=== PATIENT | female | born 1980 | race Caucasian/White ===

== ENCOUNTER 2019-04-23 12:58 | Emergency (ER) | payer OTHER ==
[2019-04-23] MEDS ORDERED: magnesium (13:10)
--- NOTE | 2019-04-23 14:20 | ER Report ---
History and Physical Time Seen By MD: 13:30 Hx. of Stated Complaint: heavy menstral bleeding, 4 tampons used this morining HPI/ROS LMP March 29. STarted menses yesterday, and has been soaking a large tampon every hour for the past 4 hours. No pain other than mild cramping. S/p tubal ligation. Has had similar episodes in the past, but never sought medical attention. States that she has an episode of heavy menses about every 6 months. Allergies: Coded Allergies: acetaminophen (Verified Allergy, Intermediate, Hives, 04/23/19) propoxyphene (Verified Allergy, Intermediate, Hives, 04/23/19) soy (Verified Allergy, Unknown, 04/23/19) Uncoded Allergies: tide (Adverse Reaction, Unknown, 04/23/19) Home Meds Reported Medications [magnesium ] No Conflict Check, 200 MG 04/23/19 Constitutional Vital Sign - Last 24 Hours 04/23/19 04/23/19 04/23/19 04/23/19 13:00 13:05 13:15 13:30 Temp 97.6 Pulse 96 87 78 Resp 16 B/P (MAP) 131/78 (95) 131/78 109/65 (80) Pulse Ox 96 95 97 O2 Delivery Room Air 04/23/19 04/23/19 04/23/19 04/23/19 13:45 14:00 14:15 14:30 Pulse 72 60 56 B/P (MAP) 81/46 (58) 107/66 (80) Pulse Ox 98 97 96 Physical Exam General Appearance: The patient is alert, has no immediate need for airway protection and no current signs of toxicity. Eyes: Pupils equal and round no injection. Respiratory: Chest is non tender, lungs are clear to auscultation. Cardiac: regular rate and rhythm Gastrointestinal: Abdomen is soft and non tender, no masses, bowel sounds normal. : Normal cervix, No CMT or Adnexal TTP, no discharge, no lesions/lacerations. Scant bleeding from cervix. Skin: No rashes or lesions. DIFFERENTIAL DIAGNOSIS: After history and physical exam differential diagnosis was considered for vaginal bleeding including but not limited to ectopic , menses, miscarriage, and dysfunctional uterine bleeding. Medical Decision Making Data Points Result Diagram: 04/23/19 1303 04/23/19 1303 Laboratory Hematology Test 04/23/19 13:03 White Blood Count 7.1 k/uL (4.5-11.0) Red Blood Count 4.50 M/uL (4.17-5.56) Hemoglobin 13.6 g/dL (12.0-16.0) Hematocrit 40.5 % (34.0-47.0) Mean Corpuscular Volume 90.0 fL (80.0-96.0) Mean Corpuscular Hemoglobin 30.2 pg (26.0-33.0) Mean Corpuscular Hemoglobin Concent 33.6 g/dL (32.0-36.0) Red Cell Distribution Width 12.6 % (11.5-14.5) Platelet Count 319 K/uL (150-450) Mean Platelet Volume 10.0 fL (7.2-11.1) Neutrophils (%) (Auto) 58.1 % (39.4-72.5) Lymphocytes (%) (Auto) 34.2 % (17.6-49.6) Monocytes (%) (Auto) 5.5 % (4.1-12.4) Eosinophils (%) (Auto) 1.1 % (0.4-6.7) Basophils (%) (Auto) 0.8 % (0.3-1.4) Nucleated RBC Relative Count (auto) 0.0 /100WBC Neutrophils # (Auto) 4.1 K/uL (2.0-7.4) Lymphocytes # (Auto) 2.4 K/uL (1.3-3.6) Monocytes # (Auto) 0.4 K/uL (0.3-1.0) Eosinophils # (Auto) 0.1 K/uL (0.0-0.5) Basophils # (Auto) 0.1 K/uL (0.0-0.1) Nucleated RBC Absolute Count (auto) 0.00 K/uL Chemistry Test 04/23/19 13:03 Sodium Level 137 mmol/L (137-145) Potassium Level 3.5 mmol/L (3.5-5.0) Chloride Level 104 mmol/L (98-107) Carbon Dioxide Level 22 mmol/L (22-31) Blood Urea Nitrogen 10 mg/dl (7-18) Creatinine 0.90 mg/dl (0.52-1.04) Glomerular Filtration Rate Calc > 60.0 Random Glucose 129 mg/dl (75-110) Calcium Level 9.3 mg/dl (8.4-10.2) Total Bilirubin 0.6 mg/dl (0.2-1.3) Aspartate Amino Transf (AST/SGOT) 31 U/L (0-35) Alanine Aminotransferase (ALT/SGPT) 30 U/L (0-56) Alkaline Phosphatase 71 U/L (0-126) Total Protein 7.9 g/dl (6.3-8.2) Albumin 4.6 g/dl (3.5-5.0) Urinalysis Test 04/23/19 13:08 Urine Color Straw Urine Clarity Clear Urine pH 6.0 pH (4.8-9.5) Urine Specific [place] 1.003 Urine Protein Negative mg/dL (NEGATIVE) Urine Glucose (UA) Negative mg/dL (NEGATIVE) Urine Ketones Negative mg/dL (NEGATIVE) Urine Blood Moderate (NEGATIVE) Urine Nitrite Negative (NEGATIVE) Urine Bilirubin Negative (NEGATIVE) Urine Urobilinogen Negative mg/dL (0.2-1.9) Urine Leukocyte Esterase Negative (NEGATIVE) Urine RBC <1 /HPF (0-2/HPF) Urine WBC 1 /HPF (0-5/HPF) Urine Squamous Epithelial Cells None /LPF (</=FEW) Urine Transitional Epithelial Cells Few /LPF (NONE-FEW) Urine Bacteria Few /HPF (NONE-FEW) Urine Mucus None /HPF (NONE-FEW) Urine HCG, Qualitative Negative (NEGATIVE) ED Course/Re-evaluation ED Course H CG negative. CBC normal. Pelvic exam consistent with normal menses. No obvious source to explain excessive bleeding. No pain. The patient is very pleasant and comfortable. I told her it could be that she has a fibroid. I do not think she needs emergent or urgent imaging. Told her if the symptoms continue she should follow-up with her primary doctor for a routine ultrasound. She is amenable with the plan. Decision to Disposition Date: Apr 23, 2019 Decision to Disposition Time: 15:06 Depart Departure Latest Vital Signs Vital Signs Date Time Temp Pulse Resp B/P (MAP) Pulse Ox O2 Delivery O2 Flow Rate FiO2 04/23/19 14:30 56 107/66 (80) 96 04/23/19 13:05 97.6 16 Room Air Impression: Primary Impression: Menorrhagia with regular cycle Condition: Improved Disposition: HOME OR SELF-CARE Patient Instructions: Menorrhagia (ED) JUDY DICKEY MD Apr 23, 2019 14:20
[2019-04-23 14:30] VITALS: BP 107/66
[2019-04-23] MEDS ORDERED: NS(*) 0.9% 1000 ML BAG 1,000 ML IV ONE (14:30)
[2019-04-23 14:56] LABS: PLATELET COUNT, AUTOMATED 319 K/uL (150-450)
== END 2019-04-23 15:30 | disposition home or self-care (01) ==
LOC: ER 13:18
DX: N92.0 Excessive and frequent menstruation with regular cycle (principal)
CPT/HCPCS: 81001; 81025; 85025; 96360; 99283; J7030; 82040; 82247; 82310; 82374; 82435; 82565; 82947; 84075; 84132; 84155; 84295; 84450; 84460; 84520